=== PATIENT | female | born 1955 | race Caucasian/White ===

== ENCOUNTER 2019-12-29 07:52 | Emergency (ER) | payer MEDICARE, OTHER ==
[~2019-12-29] VITALS: Ht 157.5 cm; Wt 115.0 kg
[~2019-12-29 07:52] MED LIST: ASPI-1497 PO; ATOR10TA69 PO; CYCL5TAB PO
[2019-12-29] MEDS ORDERED: ACETAMINOPHEN 500MG TABLET PO ONE (08:30)
[2019-12-29] MEDS ORDERED: IBUPROFEN 800MG TABLET PO ONE (08:30)
[2019-12-29] MEDS ORDERED: MORPHINE SULFATE 10 MG/ML CPJ IM SCH (10:00)
[2019-12-29] MEDS ORDERED: ONDANSETRON 4MG ODT PO SCH (10:00)
[2019-12-29] MEDS ORDERED: BUPIVACAINE HCL/PF 0.25% (2.5MG/ML) 10ML INFIL NR (10:22)
[2019-12-29] MEDS ORDERED: MORPHINE SULFATE 10 MG/ML CPJ IV ONE (11:00)
[2019-12-29 14:07] VITALS: BP 184/71
== END 2019-12-29 14:08 | disposition home or self-care (01) ==
LOC: ER 08:56
DX: S43.084A Other dislocation of right shoulder joint, initial encounter (principal); Z79.82 Long term (current) use of aspirin; W01.0XXA Fall on same level from slipping, tripping and stumbling without subsequent striking against object, initial encounter; Y93.89 Activity, other specified; Y92.89 Other specified places as the place of occurrence of the external cause
CPT/HCPCS: 73030; 73080; 73110; 73130; 96372; 96374; 99284; J2270; J3490; Q0162; L3670